=== PATIENT | female | born 1955 | race Caucasian/White ===

== ENCOUNTER 2025-04-13 10:17 | Emergency (ER) | payer MEDICARE, OTHER ==
[2025-04-13] MEDS: Acetaminophen/oxyCODONE 325-5 MG Tab PO ONE (12:24)
[2025-04-13] MEDS: Ketorolac 60 MG/2 ML SDV IM ONE (12:44)
== END 2025-04-13 12:49 | disposition home or self-care (01) ==
LOC: JD.ED 10:17
DX: S76.312A Strain of muscle, fascia and tendon of the posterior muscle group at thigh level, left thigh, initial encounter (principal); F17.210 Nicotine dependence, cigarettes, uncomplicated; K21.9 Gastro-esophageal reflux disease without esophagitis; Z79.899 Other long term (current) drug therapy; X50.0XXA Overexertion from strenuous movement or load, initial encounter; Y93.89 Activity, other specified
CPT/HCPCS: 96372; 99283; 99284; A9270-GY; J1885